=== PATIENT | male | born 1970 | race African-American/Black ===

== ENCOUNTER 2017-05-07 08:39 | Emergency (ER) | payer SELFPAY ==
[2017-05-07 08:45] VITALS: TEMP 97.1; BMI 31.0
--- NOTE | 2017-05-07 09:17 | PDOC ---
History of Present Illness - General History Source: Patient Exam Limitations: No Limitations - History of Present Illness Initial Comments: 05/07/17 10:06 The patient is a 46 year old male with no significant PMH of who presents to the emergency department with chest pain beginning at approximately 5AM this morning. The patient describes the chest pain as a crushing sensation localized in the midsternal area, with a severity of 7/10. He notes associated nausea and epigastric abdominal pain with his chest pain, and acknowledges occasional radiation of his epigastric pain into his chest. The patient also notes green colored stool since this morning. The patient denies experiencing any adverse symptoms last night, but acknowledges vomiting due to illness about 3 days ago. He notes that he had similar chest pain intermittently over the past 3 years but did not follow up with the spool maker. The patient denies any recent travel, history of blood clots, or leg swelling. The patient denies any episodes of cyclic vomiting. The patient became significantly nauseous during abdominal exam. The patient denies shortness of breath, headache and dizziness. Denies fever, chills, diarrhea and constipation. Denies dysuria, frequency, urgency and hematuria. Allergies: NKA Past surgical history: None reported. Social history: Alcohol abuse. Marijuana abuse. No reported cigarette use. PCP: None reported. <Clarence Camp - Last Filed: 05/07/17 10:41> <Jorge Rosado - Last Filed: 05/07/17 18:55> - General Chief Complaint: Chest Pain Stated Complaint: CHEST PAIN Time Seen by Provider: 05/07/17 09:06 Past History <Clarence Camp - Last Filed: 05/07/17 10:41> - Past Medical History COPD: No - Suicide/Smoking/Psychosocial Hx Smoking History: Never smoked Have you smoked in the past 12 months: No Information on smoking cessation initiated: No Hx Alcohol Use: Yes (daily) Drug/Substance Use Hx: Yes (geovani) Substance Use Type: Alcohol, Marijuana <Jorge Rosado - Last Filed: 05/07/17 18:55> - Past Medical History Allergies/Adverse Reactions: Allergies Allergy/AdvReac Type Severity Reaction Status Date / Time No Known Allergies Allergy Verified 05/07/17 08:42 Home Medications: Ambulatory Orders Ondansetron [Zofran Odt -] 4 mg SL BID #14 od.tablet 11/21/17 Review of Systems - Review of Systems Able to Perform ROS?: Yes Comments:: 05/07/17 10:06 A complete review of 10 out of 10 review of systems is taken and is negative apart from what is previously mentioned below and in the HPI. <Clarence Camp - Last Filed: 05/07/17 10:41> *Physical Exam - Vital Signs Last Vital Signs Temp Pulse Resp BP Pulse Ox 97.1 F L 84 18 162/106 100 05/07/17 08:43 05/07/17 08:43 05/07/17 08:43 05/07/17 08:43 05/07/17 08:43 - Physical Exam Comments: 05/07/17 10:08 Vitals: Triage Vital signs reviewed General Appearance: no acute distress, well nourished well developed, Throat: Posterior oropharynx without erythema, mucous membranes moist, Chest Wall: Nontender Cardiac: Regular rate and rhythm, no murmurs, no rubs, no gallops, Lungs: Clear to auscultation bilateral, good air movement bilaterally, Abdomen: (+) RUQ & epigastric tenderness. Soft, nondistended, normal bowel sounds. No rebound, no guarding. Extremities: Full range of motion to all extremities, no cyanosis, clubbing, or edema Skin: Warm and dry, no rashes or lesions, no petechiae Neuro: AOX3; Cranial Nerves 2-12 grossly intact, Strength intact to all extremities, Sensation intact to all extremities, gait normal Psych: normal mood, normal affect <Clarence Camp - Last Filed: 05/07/17 10:41> - Vital Signs Last Vital Signs Temp Pulse Resp BP Pulse Ox 97.1 F L 84 18 162/106 100 05/07/17 08:43 05/07/17 08:43 05/07/17 08:43 05/07/17 08:43 05/07/17 08:43 <Jorge Rosado - Last Filed: 05/07/17 18:55> Heart Score/ECG Review #1 05/07/17 10:19 EKG performed at [9:55:43] demonstrates rate of [68], rhythm of [normal], axis equal to [normal]. no T wave inversions, no ST elevations <Clarence Camp - Last Filed: 05/07/17 10:41> ED Treatment Course - LABORATORY CBC & Chemistry Diagram: 05/07/17 09:09 05/07/17 09:09 - ADDITIONAL ORDERS Additional order review: Laboratory Results 05/07/17 05/07/17 09:09 09:09 PT with INR 12.80 H INR 1.13 Sodium 137 Potassium 4.6 Chloride 102 Carbon Dioxide 27 Anion Gap 8 BUN 15 Random Glucose 94 Calcium 9.0 Magnesium 2.0 Albumin 3.8 05/07/17 09:09 RBC 5.13 MCV 87.1 MCHC 32.0 RDW 14.2 MPV 8.7 Neutrophils % 64.0 Lymphocytes % 25.2 Monocytes % 8.2 Eosinophils % 1.5 Basophils % 1.1 - Medications Given in the ED: ED Medications Discontinued Medications Generic Name Dose Route Start Last Admin Trade Name Freq PRN Reason Stop Dose Admin Famotidine/Sodium Chloride 20 mg in 50 mls @ 100 mls/hr 05/07/17 09:28 09:40 Pepcid 20 Mg Premixed Ivpb - IVPB 05/07/17 09:57 100 mls/hr ONCE ONE Administration Ondansetron HCl 8 mg 05/07/17 09:28 05/07/17 09:40 Zofran Injection IVPUSH 05/07/17 09:29 8 mg ONCE ONE Administration Sodium Chloride 1,000 ml 05/07/17 09:20 05/07/17 09:40 Normal Saline - IV 05/07/17 09:21 1,000 ml ONCE ONE Administration <Clarence Camp - Last Filed: 05/07/17 10:41> - LABORATORY CBC & Chemistry Diagram: 05/07/17 09:09 05/07/17 09:09 - RADIOLOGY Radiology Studies Ordered: Category Date Time Status CHEST PA & LAT [RAD] Stat Radiology 05/07/17 09:06 Ordered <Jorge Rosado - Last Filed: 05/07/17 18:55> Medical Decision Making - Medical Decision Making 05/07/17 10:24 Plan: Care: Cardiac Monitoring, NPO, Vital signs Q1H & orthostatic Lab: Lipase Cardiology: EKG Medications: Famotidine, Ondansetron, NaCl Radiology: Chest PA & LAT, Abdominal US Respiratory: O2 therapy, Nasal cannula 2 Ipm Reassess and test diet. <Clarence Camp - Last Filed: 05/07/17 10:41> - Medical Decision Making 05/07/17 18:54 Reevaluation status post GI cocktail patient feels much better Laboratory analysis chest x-ray ultrasound all within normal limits Now tolerating fluids History exam and most likely diagnosis at this time gastritis counseled regarding alcohol cessation provided with GI follow-up Findings, the need for follow-up and strict return instructions discussed with patient. <Jorge Rosado - Last Filed: 05/07/17 18:55> *DC/Admit/Observation/Transfer - Attestations Scribe Attestion: 05/07/17 10:09 Documentation prepared by Clarence Camp, acting as medical terminologist for Jorge Rosado MD. <Clarence Camp - Last Filed: 05/07/17 10:41> - Discharge Dispostion Admit: No <Jorge Rosado - Last Filed: 05/07/17 18:55> Diagnosis at time of Disposition: Abdominal pain with vomiting - Discharge Dispostion Disposition: HOME - Prescriptions Prescriptions: Ondansetron [Zofran Odt -] 4 mg SL BID #14 od.tablet - Referrals Referrals: Samuel Solano MD [Staff Physician] - - Patient Instructions Printed Discharge Instructions: DI for Nausea -- Adult, Nausea and Vomiting- Adult Additional Instructions: Zofran as prescribed. Take [id number] Pepcid and Maalox as directed on package and. Do not drink alcohol in excess. Follow-up with within 1 week. Return to the emergency department for any severe worsening symptoms or for any concerns.
[2017-05-07] MEDS ORDERED: SODIUM CHLORIDE 0.9% 1000 ML INFUS.BAG IV ONE (09:20)
[2017-05-07] MEDS ORDERED: ONDANSETRON 4 MG/2 ML VIAL IVPUSH ONE (09:28)
[2017-05-07] MEDS ORDERED: FAMOTIDINE 20 MG/50 ML IVPB 20 MG/50 ML MG IVPB ONE ×2 (09:28→09:33)
[2017-05-07 09:29] LABS: BASOPHIL 1.1 % (0-2.0); EOSINOPHIL 1.5 % (0-4.5); MCH 27.9 pg (25.7-33.7); MEAN CELL VOLUME 87.1 fl (80-96); MEAN PLT VOLUME 8.7 fl (7.5-11.1); PLATELET COUNT 264 K/MM3 (134-434); RDW 14.2 % (11.9-15.9); WHITE BLOOD COUNT 5.9 K/mm3 (4.0-10.0)
[2017-05-07] MEDS ORDERED: ONDANSETRON 4 MG/2 ML VIAL ONE (09:33)
[2017-05-07 09:47] LABS: INR 1.13 (0.82-1.09); PROTHROMBIN TIME (PATIENT) 12.8 SEC (9.98-11.88)
[2017-05-07 10:02] LABS: ALBUMIN 3.8 g/dl (3.4-5.0); ANION GAP 8 (8-16); CO2 27 mmol/L (21-32); GLUCOSE,RANDOM 94 mg/dL (74-106)
[2017-05-07 10:10] LABS: ALK PHOS 49 U/L (45-117); BILIRUBIN,TOTAL 0.5 mg/dL (0.2-1.0); CREATININE 1.5 mg/dL (0.7-1.3); SGOT/AST 30 U/L (15-37); SGPT/ALT 40 U/L (12-78); TOT PROT 7.5 g/dl (6.4-8.2); TROPONIN I < 0.02 ng/ml (0.00-0.05)
[2017-05-07 13:14] VITALS: BP 153/108; PULSE 80
--- NOTE | 2017-05-08 12:13 | EKG ---
Test Reason : Blood Pressure : / mmHG Vent. Rate : 082 BPM Atrial Rate : 082 BPM P-R Int : 160 ms QRS Dur : 078 ms QT Int : 370 ms P-R-T Axes : 041 020 008 degrees QTc Int : 432 ms NORMAL SINUS RHYTHM NORMAL ECG NO PREVIOUS ECGS AVAILABLE Confirmed by AYE WOLFF MD ([id number]) on 05/08/2017 12:12:58 PM Referred By: Confirmed By:AYE WOLFF MD
== END 2017-05-07 12:59 | disposition home or self-care (01) ==
LOC: JER 08:39
PROC: 3E033GC Introduction of Other Therapeutic Substance into Peripheral Vein, Percutaneous Approach (ICD-10-PCS; principal; 2017-05-07)
DX: R10.84 Generalized abdominal pain (principal); R11.10 Vomiting, unspecified
CPT/HCPCS: 36415; 71020-TC; 76705-TC; 80053; 83690; 83735; 84484; 85025; 85610; 93005; 93010; 99285-25

== ENCOUNTER 2022-08-08 04:26 | Day surgery (SDC) | payer OTHER ==
[2022-08-03 11:08] VITALS: BMI 33.2
[2022-08-08] MEDS ORDERED: PROPOFOL 40 ML ONE (07:30)
[2022-08-08] MEDS ORDERED: SUCCINYLCHOLINE CHLORIDE 200 MG/10 ML SYRINGE ONE (07:31)
[2022-08-08] MEDS ORDERED: MIDAZOLAM HCL 2 MG/2 ML SINGLE DOSE VIAL ONE (07:31)
[2022-08-08] MEDS ORDERED: ROPIVACAINE HCL 0.5% 30ML VIAL ONE (07:36)
[2022-08-08] MEDS ORDERED: DEXAMETHASONE SOD PHOSPHATE 10 MG/1 ML VIAL ONE (07:36)
[2022-08-08] MEDS ORDERED: ceFAZolin SODIUM 1 GM VIAL IVPB ONE (08:37)
[2022-08-08] MEDS ORDERED: PROPOFOL 20 ML ONE ×2 (08:51)
[2022-08-08] MEDS ORDERED: ONDANSETRON 4 MG/2 ML VIAL IVPUSH PRN (09:39)
[2022-08-08] MEDS ORDERED: PROMETHAZINE HCL 25 MG/1 ML VIAL IVPB PRN (09:39)
[2022-08-08 10:39] VITALS: TEMP 97.3
[2022-08-08 11:44] VITALS: BP 130/85; PULSE 72; RESP 20
== END 2022-08-08 12:11 | disposition home or self-care (01) ==
LOC: JASU-SURG 04:26
PROVIDERS: ATTEND Orthopaedic Surgery
PROC: 0RNK4ZZ Release Left Shoulder Joint, Percutaneous Endoscopic Approach (ICD-10-PCS; 2022-08-08)
PROC: 0LM24ZZ Reattachment of Left Shoulder Tendon, Percutaneous Endoscopic Approach (ICD-10-PCS; 2022-08-08)
PROC: 0LQ24ZZ Repair Left Shoulder Tendon, Percutaneous Endoscopic Approach (ICD-10-PCS; principal; 2022-08-08 08:00)
DX: M75.102 Unspecified rotator cuff tear or rupture of left shoulder, not specified as traumatic (principal); M24.112 Other articular cartilage disorders, left shoulder; M19.012 Primary osteoarthritis, left shoulder
CPT/HCPCS: 94760; C1713; J1100